=== PATIENT | male | born 1960 | race Caucasian/White ===

== ENCOUNTER 2020-09-08 21:46 | Emergency (ER) | payer OTHER, SELFPAY ==
--- NOTE | ~2020-09-08 | XR_ITS ---
EXAMINATION: XR CHEST CLINICAL INFORMATION: Altered mental status COMPARISON: None TECHNIQUE: Frontal view of the chest was obtained. FINDINGS: There is marked hypoinflation of the lungs with bibasilar atelectasis. Heart size normal. There is no evidence of CHF. No large effusions are present. XR/XR chest 1V IMPRESSION: Hypoinflated lungs with bibasilar atelectasis.
--- NOTE | ~2020-09-08 | CT_ITS ---
EXAMINATION: NONCONTRAST HEAD CT NONCONTRAST CERVICAL SPINE CT INDICATION INFORMATION: Fall. Intoxicated. COMPARISON: None TECHNIQUE: Separate noncontrast CT examinations of the head and cervical spine were performed. Coronal and sagittal images were created for each examination at the technologist workstation. This CT examination was performed using dose optimization techniques as appropriate, variously including the following: *Automated exposure control *Adjustment of mA and/or kV according to patient size (this includes techniques or standardized protocols for targeted exams where dose is matched to indication/reason for exam; i.e. extremities or head) *Use of iterative reconstruction technique DLP: 1807 mGy-cm FINDINGS: Head: There is no evidence of acute intracranial hemorrhage or territorial infarction. No abnormal mass effect or midline shift is seen. Lucas to white matter differentiation is well preserved. No extra-axial fluid collections are identified. No hydrocephalus. No significant volume loss. There is no abnormal attenuation within the brain parenchyma. No acute osseous or soft tissue abnormality. The mastoid air cells and visualized portions of the paranasal sinuses are well aerated. Cervical spine: Slight anterolisthesis of C3 on C4, appearing degenerative with facet arthropathy at this level. There is otherwise anatomic alignment of the vertebral bodies and posterior elements. The atlantoaxial and atlantooccipital articulations are intact. Vertebral body heights are maintained. There is multilevel intervertebral disc space narrowing with endplate osteophyte formation and facet arthropathy. No evidence of acute fracture. No prevertebral soft tissue swelling. Visualized portions of the lung apices are unremarkable. The thyroid gland is unremarkable. CT/CT cervical spine wo con IMPRESSION: 1. No acute intracranial finding. 2. No fracture or malalignment of the cervical spine. Mild to moderate degenerative changes.
--- NOTE | 2020-09-08 21:53 | ECG_ITS ---
Test Reason : ETOH Blood Pressure : / mmHG Vent. Rate : 061 BPM Atrial Rate : 061 BPM P-R Int : 216 ms QRS Dur : 114 ms QT Int : 472 ms P-R-T Axes : 033 -15 011 degrees QTc Int : 475 ms Sinus rhythm with 1st degree A-V block Minimal voltage criteria for LVH, may be normal variant Borderline ECG No previous ECGs available Referred By: Lan Lopez Electronically Signed By:VALENTÍN GONZALES
[2020-09-08 22:19] VITALS: BP 124/59; PULSE 62; RESP 18; TEMP 36.5; O2SAT 88; BMI 30.4
[2020-09-08 22:21] LABS: MANUAL DIFF FLAG NO
[2020-09-08 22:22] LABS: Basophils Absolute Auto 0.1 X10*3/uL (0.0-0.2); Basophils Percent Auto 0.7 % (0-2); Eosinophils Absolute Auto 0.1 X10*3/uL (0.0-0.4); Eosinophils Percent Auto 1.7 % (0-4); Hemoglobin 14.3 g/dl (14.0-18.0); Imm Gran Abs Auto 0.04 X10*3/uL (0.00-0.03); Imm Gran Pct Auto 0.5 % (0.0-0.4); Lymphocytes Absolute Auto 1.6 X10*3/uL (1.2-4.9); Lymphocytes Percent Auto 21.5 % (20-40); Mean Corpuscular Volume 88.1 fL (80-98); Mean Platelet Volume 9.7 fL (9.4-12.4); Monocytes Absolute Auto 0.5 X10*3/uL (0.1-1.2); Monocytes Percent Auto 5.9 % (2-11); Neutrophils Absolute Auto 5.3 X10*3/uL (2.0-8.3); Neutrophils Percent Auto 69.7 % (45-73); Platelet Count 160 X10*3/uL (160-400); Red Blood Count 4.77 X10*6/uL (4.60-5.80); Red Cell Distribution Width 12.3 % (11.0-16.0); White Blood Count 7.6 X10*3/uL (4.8-10.8)
[2020-09-08 22:28] VITALS: O2SAT 94
[2020-09-08 22:28] LABS: Glucose, Whole Blood 233 mg/dL (60-115)
--- NOTE | 2020-09-08 22:32 | PC.NURSE ---
Addendum entered by Lu Anand 09/08/20 22:38: note writen on wrong patient. disregard Original Note: rn to rn with Helga.
[2020-09-08 22:33] VITALS: BP 105/63
[2020-09-08] MEDS: 0.9 % Sodium Chloride 1,000 ML 999 ML IVCONT (22:33)
[2020-09-08] MEDS: ondansetron HCL 4 MG/2 ML VIAL IVPUSH (22:33)
[2020-09-08 22:35] LABS: INTERNATIONAL NORM RATIO 0.9 (0.9-1.1); Prothrombin Time 10.9 SEC (10.8-13.0)
[2020-09-08 22:41] LABS: Ethanol 280 mg/dL
[2020-09-08 22:42] LABS: Lipase 33 U/L (8-78); Magnesium 2.1 mg/dL (1.6-2.6)
[2020-09-08 22:44] LABS: Alanine Aminotransferase 33 U/L (0-40); Albumin Level 4.5 g/dL (3.5-5.0); Alkaline Phosphatase 72 U/L (39-117); Anion Gap 17 (12-20); Aspartate Amino Transferase 22 U/L (5-37); Bilirubin Direct < 0.2 mg/dL (0.0-0.5); Bilirubin Total 0.4 mg/dL (0.0-1.0); Blood Urea Nitrogen 21 mg/dL (9-16); Calcium 8.9 mg/dL (8.4-10.2); Carbon Dioxide 22 mmol/L (22-29); Chloride 103 mmol/L (96-108); Creatinine Clr Calc Pharmacy 119.1; Estimated Glomerular Filt Rate > 60; Glucose Random 267 mg/dL (60-115); Potassium 3.2 mmol/L (3.3-5.1); Sodium 139 mmol/L (135-145)
[2020-09-08 22:47] LABS: Troponin-I High Sensitivity < 3.5 ng/L (<3.5-35.0)
[2020-09-08 23:13] LABS: Partial Thromboplastin Time 19.7 SEC (24.1-38.0)
--- NOTE | 2020-09-08 23:14 | PC.NURSE ---
detox information, al-anon, and AA info given to . leaving at this time with all of belongings to tend to child at home.
--- NOTE | 2020-09-09 00:11 | ED.ALCOHOL ---
HPI - Alcohol General Chief Complaint: ETOH/Substance Use Stated Complaint: etoh Time Seen by Provider: 09/08/20 21:52 Source: EMS Mode of arrival: EMS Limitations: altered mental status History of Present Illness HPI narrative: Patient alcoholic drinks heavy often was intoxicated at home fell out witnessed EMS found him on the floor large tumors volume of vomitus around him patient able to open his eyes to name but otherwise unable to follow commands pupils were 4 mm reactive no injuries to the skull gag reflex intact was present at home when EMS reached MD complaint: alcohol intoxication Related Data Home Medications Medication Instructions Recorded Confirmed allopurinol 300 mg PO DAILY 09/08/20 09/08/20 amlodipine 10 mg PO DAILY 09/08/20 09/08/20 atenolol 50 mg PO DAILY 09/08/20 09/08/20 atorvastatin 20 mg PO BEDTIME 09/08/20 09/08/20 hydrochlorothiazide 25 mg PO QAM 09/08/20 09/08/20 lisinopril 40 mg PO DAILY 09/08/20 09/08/20 metformin 1,000 mg PO DAILY 09/08/20 09/08/20 omeprazole 20 mg PO DAILY 09/08/20 09/08/20 Allergies Allergy/AdvReac Type Severity Reaction Status Date / Time No Known Allergies Allergy Verified 09/08/20 22:19 Review of Systems Review of Systems: Yes Unobtainable due to mental condition (Intoxicated) [facility] Past Medical History Medical History Diabetes ETOH abuse High cholesterol HTN (hypertension) Social History Social History Alcohol intake: current Alcohol intake frequency: 3 or more drinks per day Physical Exam Vital Signs: Vital Signs: Last Vital Signs Temp 97.7 F 09/08/20 22:19 Pulse 62 09/08/20 22:19 Resp 18 09/08/20 22:19 BP 105/63 09/08/20 22:33 Pulse Ox 94 09/08/20 22:28 Body Mass Index 30.4 Const: General: no acute distress, intoxicated appearing and patient obtunded Orientation/consciousness: oriented to person and patient obtunded HENMT: Head: Yes No palpable skull fracture present, Yes normocephalic and Yes atraumatic Mouth: Normal oral and palatal mucosa present Eyes: General: appearance normal, both eyes and all related structures Pupils: Equal, round and reactive pupils present Neck: Neck: Yes normal visual inspection, Yes full ROM and No trachea midline Chest: Chest palpation & inspection: normal inspection of the chest and normal palpation of entire chest wall Resp: Effort & Inspection: normal respiratory effort Auscultation: clear to auscultation bilaterally, no crackles and no rales Cardio: Palpation: normal PMI Rate: regular rate Rhythm: regular rhythm Heart sounds: S1 normal heart sound present and S2 normal heart sound present Peripheral pulses: Peripheral pulses 2+ throughout GI: Inspection: Yes normal to inspection Palpation (GI): Soft to palpation and nontender Auscultation: normal bowel sounds : General: Yes no CVA tenderness Back/Spine/Pelvis: Back: no CVA tenderness Thoracic/Lumbar Spine: thoracic and lumbar spine normal to inspection Skin: General skin exam: no rashes or lesions noted Neuro: Other: Minimal response to painful stimuli General: oriented to person and patient obtunded Cranial nerves: Yes Equal, round and reactive pupils present Course Reevaluation(s) Reevaluation #1: Patient oriented x3 now alert able to ambulate does not remember what happened to him denies any significant pain . Will discharge patient home Time: 00:19 MDM - Alcohol MDM Narrative Medical decision making narrative: Patient a couple intoxication workup is negative for any several bleeders cervical FX patient improved during stay in the ED will discharge patient home Lab Data Attestation: I reviewed the patient's lab results. Result diagrams: 09/08/20 22:16 09/08/20 22:16 Labs: Lab Results 09/08/20 09/08/20 09/08/20 Range/Units 22:16 22:16 22:16 WBC 7.6 (4.8-10.8) X10*3/uL RBC 4.77 (4.60-5.80) X10*6/uL Hgb 14.3 (14.0-18.0) g/dl Hct 42.0 (42-52) % MCV 88.1 (80-98) fL MCH 30.0 (27.0-33.0) pg MCHC 34.0 (31.0-36.0) g/dl RDW 12.3 (11.0-16.0) % Plt Count 160 (160-400) X10*3/uL MPV 9.7 (9.4-12.4) fL Immature Gran % (Auto) 0.5 H (0.0-0.4) % Neut % (Auto) 69.7 (45-73) % Lymph % (Auto) 21.5 (20-40) % [place] % (Auto) 5.9 (2-11) % Eos % (Auto) 1.7 (0-4) % Baso % (Auto) 0.7 (0-2) % Lymph # (Auto) 1.6 (1.2-4.9) X10*3/uL [place] # (Auto) 0.5 (0.1-1.2) X10*3/uL Eos # (Auto) 0.1 (0.0-0.4) X10*3/uL Baso # (Auto) 0.1 (0.0-0.2) X10*3/uL Abs Immat Gran (auto) 0.04 H (0.00-0.03) X10*3/uL Absolute Neuts (auto) 5.3 (2.0-8.3) X10*3/uL Absolute Nucleated RBC 0.000 (0.0-0.012) X10*3/uL Nucleated RBC % (auto) 0.0 (0.0-0.2) /100WBC PT 10.9 (10.8-13.0) SEC INR 0.9 (0.9-1.1) APTT 19.7 L (24.1-38.0) SEC Sodium 139 (135-145) mmol/L Potassium 3.2 L (3.3-5.1) mmol/L Chloride 103 (96-108) mmol/L Carbon Dioxide 22 (22-29) mmol/L Anion Gap 17 (12-20) BUN 21 H (9-16) mg/dL Creatinine 0.92 (0.5-1.4) mg/dL Estim Creat Clear Calc 119.1 Estimated GFR > 60 POC Glucose (60-115) mg/dL Random Glucose 267 H (60-115) mg/dL Calcium 8.9 (8.4-10.2) mg/dL Magnesium (1.6-2.6) mg/dL Total Bilirubin 0.4 (0.0-1.0) mg/dL Direct Bilirubin < 0.2 (0.0-0.5) mg/dL AST 22 (5-37) U/L ALT 33 (0-40) U/L Alkaline Phosphatase 72 (39-117) U/L Troponin I High Sens (<3.5-35.0) ng/L Total Protein 7.0 (6.5-8.0) g/dL Albumin 4.5 (3.5-5.0) g/dL Lipase (8-78) U/L Ethyl Alcohol mg/dL 09/08/20 09/08/20 09/08/20 Range/Units 22:16 22:16 22:16 WBC (4.8-10.8) X10*3/uL RBC (4.60-5.80) X10*6/uL Hgb (14.0-18.0) g/dl Hct (42-52) % MCV (80-98) fL MCH (27.0-33.0) pg MCHC (31.0-36.0) g/dl RDW (11.0-16.0) % Plt Count (160-400) X10*3/uL MPV (9.4-12.4) fL Immature Gran % (Auto) (0.0-0.4) % Neut % (Auto) (45-73) % Lymph % (Auto) (20-40) % [place] % (Auto) (2-11) % Eos % (Auto) (0-4) % Baso % (Auto) (0-2) % Lymph # (Auto) (1.2-4.9) X10*3/uL [place] # (Auto) (0.1-1.2) X10*3/uL Eos # (Auto) (0.0-0.4) X10*3/uL Baso # (Auto) (0.0-0.2) X10*3/uL Abs Immat Gran (auto) (0.00-0.03) X10*3/uL Absolute Neuts (auto) (2.0-8.3) X10*3/uL Absolute Nucleated RBC (0.0-0.012) X10*3/uL Nucleated RBC % (auto) (0.0-0.2) /100WBC PT (10.8-13.0) SEC INR (0.9-1.1) APTT (24.1-38.0) SEC Sodium (135-145) mmol/L Potassium (3.3-5.1) mmol/L Chloride (96-108) mmol/L Carbon Dioxide (22-29) mmol/L Anion Gap (12-20) BUN (9-16) mg/dL Creatinine (0.5-1.4) mg/dL Estim Creat Clear Calc Estimated GFR POC Glucose (60-115) mg/dL Random Glucose (60-115) mg/dL Calcium (8.4-10.2) mg/dL Magnesium 2.1 (1.6-2.6) mg/dL Total Bilirubin (0.0-1.0) mg/dL Direct Bilirubin (0.0-0.5) mg/dL AST (5-37) U/L ALT (0-40) U/L Alkaline Phosphatase (39-117) U/L Troponin I High Sens < 3.5 (<3.5-35.0) ng/L Total Protein (6.5-8.0) g/dL Albumin (3.5-5.0) g/dL Lipase 33 (8-78) U/L Ethyl Alcohol mg/dL 09/08/20 09/08/20 Range/Units 22:16 22:25 WBC (4.8-10.8) X10*3/uL RBC (4.60-5.80) X10*6/uL Hgb (14.0-18.0) g/dl Hct (42-52) % MCV (80-98) fL MCH (27.0-33.0) pg MCHC (31.0-36.0) g/dl RDW (11.0-16.0) % Plt Count (160-400) X10*3/uL MPV (9.4-12.4) fL Immature Gran % (Auto) (0.0-0.4) % Neut % (Auto) (45-73) % Lymph % (Auto) (20-40) % [place] % (Auto) (2-11) % Eos % (Auto) (0-4) % Baso % (Auto) (0-2) % Lymph # (Auto) (1.2-4.9) X10*3/uL [place] # (Auto) (0.1-1.2) X10*3/uL Eos # (Auto) (0.0-0.4) X10*3/uL Baso # (Auto) (0.0-0.2) X10*3/uL Abs Immat Gran (auto) (0.00-0.03) X10*3/uL Absolute Neuts (auto) (2.0-8.3) X10*3/uL Absolute Nucleated RBC (0.0-0.012) X10*3/uL Nucleated RBC % (auto) (0.0-0.2) /100WBC PT (10.8-13.0) SEC INR (0.9-1.1) APTT (24.1-38.0) SEC Sodium (135-145) mmol/L Potassium (3.3-5.1) mmol/L Chloride (96-108) mmol/L Carbon Dioxide (22-29) mmol/L Anion Gap (12-20) BUN (9-16) mg/dL Creatinine (0.5-1.4) mg/dL Estim Creat Clear Calc Estimated GFR POC Glucose 233 H (60-115) mg/dL Random Glucose (60-115) mg/dL Calcium (8.4-10.2) mg/dL Magnesium (1.6-2.6) mg/dL Total Bilirubin (0.0-1.0) mg/dL Direct Bilirubin (0.0-0.5) mg/dL AST (5-37) U/L ALT (0-40) U/L Alkaline Phosphatase (39-117) U/L Troponin I High Sens (<3.5-35.0) ng/L Total Protein (6.5-8.0) g/dL Albumin (3.5-5.0) g/dL Lipase (8-78) U/L Ethyl Alcohol 280 mg/dL ECG Data Attestation: I personally reviewed and interpreted this ECG as follows: Interpretation: Normal sinus rate heart rate 61 beats per minute LVH normal intervals normal axis no acute ST-T changes no acute ischemia Discharge Plan Discharge Clinical Impression: Alcoholic intoxication Qualifiers: Complication of substance-induced condition: uncomplicated Qualified Code(s): F10.920 - Alcohol use, unspecified with intoxication, uncomplicated Patient Disposition: Home, Self-Care Instructions: Alcohol Intoxication (ED) Additional Instructions: Stop alcohol use Prescriptions: No Action atorvastatin 20 mg Tablet 20 mg PO BEDTIME RF: 0 amlodipine 10 mg Tablet 10 mg PO DAILY RF: 0 metformin 1,000 mg Tablet 1,000 mg PO DAILY RF: 0 omeprazole 20 mg Capsule,Delayed Release(Dr/Ec) 20 mg PO DAILY RF: 0 allopurinol 300 mg Tablet 300 mg PO DAILY RF: 0 hydrochlorothiazide 25 mg Tablet 25 mg PO QAM RF: 0 lisinopril 40 mg Tablet 40 mg PO DAILY RF: 0 atenolol 50 mg Tablet 50 mg PO DAILY RF: 0
--- NOTE | 2020-09-09 03:00 | PC.NURSE ---
Report taken from meredith Basilio RN resuming care. Pt sleeping in bed at this time in NAD. Continue to monitor.
[2020-09-09 04:30] VITALS: RESP 16
--- NOTE | 2020-09-09 06:06 | PC.NURSE ---
This RN contacting , en route to pick pt up.
[2020-09-09 06:17] VITALS: BP 151/75; PULSE 80; RESP 20
== END 2020-09-09 06:19 | disposition home or self-care (01) ==
LOC: HO.ED 09-09 01:49
PROVIDERS: Emergency Provider Internal Medicine
DX: F10.120 Alcohol abuse with intoxication, uncomplicated (principal); Y90.8 Blood alcohol level of 240 mg/100 ml or more; E11.9 Type 2 diabetes mellitus without complications; E78.5 Hyperlipidemia, unspecified; I10 Essential (primary) hypertension; Z79.02 Long term (current) use of antithrombotics/antiplatelets; Z79.84 Long term (current) use of oral hypoglycemic drugs; Z79.899 Other long term (current) drug therapy
CPT/HCPCS: 36415; 70450; 71045; 72125; 80048; 80076; 80320; 82947; 83690; 83735; 84484; 85025; 85610; 85730; 93005; 96361; 96374; 99284; 99285; J2405

== ENCOUNTER 2020-10-28 06:17 | Outpatient (REF) | payer OTHER, SELFPAY ==
[2020-10-28 08:10] LABS: Estimated Average Glucose 157 mg/dL; Hemoglobin A1c % 7.1 %
[2020-10-28 08:25] LABS: Anion Gap 15 (12-20); Aspartate Amino Transferase 22 U/L (5-37); Blood Urea Nitrogen 20 mg/dL (9-16); Carbon Dioxide 26 mmol/L (22-29); Chloride 101 mmol/L (96-108); Cholesterol 165 mg/dL; Estimated Glomerular Filt Rate > 60; Glucose Fasting 170 mg/dL (60-99); HDL Cholesterol 43 mg/dL; LDL Cholesterol Calculated 79 mg/dl; Potassium 4.7 mmol/L (3.3-5.1); Sodium 137 mmol/L (135-145); Triglycerides 215 mg/dL
[2020-10-28 08:45] LABS: Creatinine Urine 139.55 mg/dL; Microalbum/Creatinine Ratio Ur 13.6 ug/mg cr
== END 2020-10-28 06:18 | disposition home or self-care (01) ==
LOC: HO.LAB 06:17
PROVIDERS: PCP Family Medicine; Visit Provider Family Medicine
DX: I10 Essential (primary) hypertension (principal); E11.9 Type 2 diabetes mellitus without complications; E78.00 Pure hypercholesterolemia, unspecified; Z79.899 Other long term (current) drug therapy
CPT/HCPCS: 36415; 80051; 80061; 82043; 82550; 82565; 82947; 83036; 84450; 84520

== ENCOUNTER 2020-12-22 07:09 | Day surgery (SDC) | payer OTHER, SELFPAY ==
[2020-12-12 14:39] VITALS: BMI 35.9
[2020-12-22 07:29] VITALS: BP 150/77; PULSE 59; RESP 18; TEMP 36.5; O2SAT 97
[2020-12-22 07:51] LABS: Glucose, Whole Blood 153 mg/dL (60-115)
--- NOTE | 2020-12-22 07:52 | P.CONAN_ITS ---
[facility] Past Medical History Medical History (Updated 12/12/20 @ 14:45 by Sylvia Quezada) COVID-19 vaccine series completed Diabetes ETOH abuse GERD (gastroesophageal reflux disease) High cholesterol HTN (hypertension) Hx of gout Functional capacity: independent ambulation Family History Family history of problems with anesthesia: No Surgical History Surgical History (Updated 12/12/20 @ 14:44 by Sylvia Quezada) H/O colonoscopy History of esophagogastroduodenoscopy (EGD) Hx of inguinal hernia repair History of Problems with Anesthesia: No Social History Social History Are you a primary hospice care transitions coordinator to a significant other at home: No Do you presently have visiting nurse or other home services: No Alcohol intake: current Alcohol intake frequency: a few times a week Patient Tobacco Use Status: Never used Tobacco Use of substances other than those prescribed or required for medical reasons: No Have you been hit, kicked, punched, or otherwise hurt by someone within the past year? If so, by whom?: No Are you DNR?: No Advance Directives: No (states is HCP but no official form on file) Advance Directives Information Provided: No Advance Directives on File: No Recently lost weight without trying: No Eating poorly because of decreased appetite: No Nutrition Risks: No Nutritional Risk Poor oral hygiene: Yes Meds Allergies Allergy/AdvReac Type Severity Reaction Status Date / Time No Known Allergies Allergy Verified 09/08/20 22:19 Active Medications: Current Medications Generic Name Dose Route Start Last Admin Trade Name Freq PRN Reason Stop Dose Admin Sodium Biphosphate/Sodium Phosphate 133 ml 12/22/20 07:11 Sodium Phosphate,[place]-Dibasic 133 Ml Enema OK ONCE PRN Poor Colonoscopy Prep Results Home Medications Medication Instructions Recorded Confirmed Last Taken Type allopurinol 300 mg tablet 300 mg PO DAILY 09/08/20 12/12/20 Unknown History amlodipine 10 mg tablet 10 mg PO DAILY 09/08/20 12/12/20 Unknown History atenolol 50 mg tablet 50 mg PO DAILY 09/08/20 12/12/20 Unknown History atorvastatin 20 mg tablet 20 mg PO BEDTIME 09/08/20 12/12/20 Unknown History hydrochlorothiazide 25 mg tablet 25 mg PO QAM 09/08/20 12/12/20 Unknown History lisinopril 40 mg tablet 40 mg PO DAILY 09/08/20 12/12/20 Unknown History metformin 1,000 mg tablet 1,000 mg PO DAILY 09/08/20 12/12/20 Unknown History omeprazole 20 mg capsule,delayed 20 mg PO DAILY 09/08/20 12/12/20 Unknown History release Exam Exam Date and Time: December 22, 2020 0752 Height,Weight and Vital Signs: Height 6 ft 5 in Weight 137.438 kg Last Vital Signs Temp 97.7 F 12/22/20 07:29 Pulse 59 12/22/20 07:29 Resp 18 12/22/20 07:29 BP 150/77 H 12/22/20 07:29 Pulse Ox 97 12/22/20 07:29 Pertinent Lab Results Pertinent Lab Results: Laboratory Tests 12/22/20 07:26 POC Glucose 153 H Airway Mallampati Class: III TM Dist: >3cm Neck ROM: Full Heart: RRR Lungs: CTA Assessment and Plan Final Anesthetic Review Family History of Problems with Anesthesia: No History of Problems with Anesthesia: No
[2020-12-22] MEDS: Lactated Ringers 1,000 ML 50 ML IVCONT (07:56)
[2020-12-22 09:31] VITALS: BP 108/63; PULSE 61; RESP 16; TEMP 36.3; O2SAT 95
--- NOTE | 2020-12-22 09:35 | P.BOP_ITS ---
Brief Operative Note Date of Service: 12/22/20 Pre-op diagnosis: Thao's, Screening Post-op diagnosis: other (Hiatal hernia, Colon polyp) Procedure: EGD with biopsy, Colonoscopy to the cecum and TI with bx/removal of polyp Surgeon: Palmer Shay Anesthesia: MAC Was an [employer] Worker used for this Procedure?: No Estimated blood loss (mL): 3.0 Pathology: other (A. EG Junction at 40cm B. Transverse colon polyp) Condition: stable Disposition: PACU
[2020-12-22 09:36] VITALS: BP 109/63; PULSE 59; RESP 16; O2SAT 95
[2020-12-22 09:41] VITALS: BP 106/61; PULSE 59; RESP 16; TEMP 36.4; O2SAT 95
--- NOTE | 2020-12-22 10:32 | OP_ITS ---
SURGEON: Palmer Shay MD INDICATIONS: The patient presents for evaluation of gastroesophageal reflux, Thao's esophagus, and colorectal cancer screening. Full consent has been obtained from him for this, including risks of bleeding and perforation. PREOPERATIVE DIAGNOSIS: POSTOPERATIVE DIAGNOSIS: PROCEDURE PERFORMED: Esophagogastroduodenoscopy with biopsies, and colonoscopy to the cecum and terminal ileum with biopsy and removal of polyp. ESTIMATED BLOOD LOSS: COMPLICATIONS: ANESTHESIA: Monitored anesthesia care. ASSISTANTS: SPECIMENS: PREOPERATIVE DIAGNOSES: Thao's esophagus and colorectal cancer screening. POSTOPERATIVE DIAGNOSES: Thao's esophagus and colorectal cancer screening, small hiatal hernia, colon polyp, diverticulosis, and internal hemorrhoids. DESCRIPTION OF PROCEDURE: The patient was placed in the left lateral decubitus position. The Olympus video gastroscope was passed in the posterior oropharynx and upper esophagus under direct vision. The scope was passed slowly to the distal esophagus. The gastroesophageal junction appeared at 40 cm. There was a very minimal irregularity consistent with reflux and possibly small areas of Thao's mucosa. There was no evidence of any esophagitis nor any lesions. There was a small hiatal hernia. The scope was advanced to the pylorus and duodenum was cannulated to the descending portion. The duodenum including the bulb appeared normal without mass or ulceration. The scope was withdrawn back into the stomach. The gastric antrum and body appeared normal with good peristalsis. Scope was retroflexed visualizing the proximal stomach carefully which appeared normal, without any sign of mass or ulceration, other than several hyperplastic appearing gastric polyps. The scope was straightened. The scope was withdrawn back into the esophagus. Biopsies were obtained from the EG junction at 40 cm. Proximal to this, the esophageal mucosa appeared normal. The scope was withdrawn from the patient. He was turned around for the colonoscopy. The digital rectal exam revealed no abnormalities. The Olympus video pediatric colonoscope was entered into the rectum and advanced easily to the cecum. Once in the cecum, I did identify normal-appearing cecal pouch with appendiceal orifice and a normal-appearing ileocecal valve. The terminal ileum was cannulated and appeared normal. Scope was withdrawn back in the colon. The entire cecum and ileocecal valve appeared normal. The scope was slowly withdrawn assessing all mucosal surfaces carefully. Preparation was excellent. In the transverse colon, was a flat approximately 4 or 5 mm polyp, which was biopsied and completely removed with cold biopsy forceps. I did not visualize any other polyps, colitis, nor angiodysplasia. There was a moderate amount of sigmoid diverticulosis. In the rectum, scope was retroflexed visualizing small internal hemorrhoids, but no other pathology. The rectal mucosa appeared normal. The scope was straightened out and withdrawn from the patient. He tolerated both procedures well and was returned to recovery area in stable condition. IMPRESSION: 1. Small hiatal hernia, gastroesophageal reflux, history of Thao's esophagus. 2. Small colon polyp, status post biopsy and removal. 3. Diverticulosis. 4. Internal hemorrhoids. PLAN: The results of biopsies will be checked. I would recommend a repeat upper endoscopy in approximately 3 years. If the colon polyp is a tubular adenoma, I would recommend a followup colonoscopy in 5 years. If it is only hyperplastic, I would recommend a followup colonoscopy in 10 years. In fact, if he is going to have a colonoscopy in 5 years, I would recommend the upper endoscopy be done in 5 years rather than 3 given the very minimal nature of the Thao's esophagus. He was advised to continue his omeprazole. MD ASHLEY Foley/JOSH / [id number]
== END 2020-12-22 11:00 | disposition home or self-care (01) ==
PROVIDERS: PCP Family Medicine; Visit Provider Internal Medicine
PROC: (CPT 45380; principal; 2020-12-22 08:20)
DX: Z12.11 Encounter for screening for malignant neoplasm of colon (principal); D12.3 Benign neoplasm of transverse colon; K57.30 Diverticulosis of large intestine without perforation or abscess without bleeding; K64.8 Other hemorrhoids; K22.70 Barrett's esophagus without dysplasia; K21.9 Gastro-esophageal reflux disease without esophagitis; K44.9 Diaphragmatic hernia without obstruction or gangrene; I10 Essential (primary) hypertension; E11.9 Type 2 diabetes mellitus without complications; Z79.84 Long term (current) use of oral hypoglycemic drugs; Z79.899 Other long term (current) drug therapy
CPT/HCPCS: 45380; 43239; 82947; 88305; J3010

== ENCOUNTER 2021-07-31 06:44 | Outpatient (REF) | payer OTHER, SELFPAY ==
[2021-07-31 07:42] LABS: Estimated Average Glucose 160 mg/dL; Hemoglobin A1c % 7.2 %
[2021-07-31 07:54] LABS: Alanine Aminotransferase 33 U/L (0-40); Anion Gap 13 (12-20); Blood Urea Nitrogen 15 mg/dL (9-16); Carbon Dioxide 28 mmol/L (22-29); Chloride 98 mmol/L (96-108); Estimated Glomerular Filt Rate > 60; Glucose Fasting 188 mg/dL (60-99); Potassium 4.3 mmol/L (3.3-5.1); Sodium 135 mmol/L (135-145)
== END 2021-07-31 06:45 | disposition home or self-care (01) ==
LOC: HO.LAB 06:44
PROVIDERS: PCP Family Medicine; Visit Provider Family Medicine
DX: I10 Essential (primary) hypertension (principal); E11.9 Type 2 diabetes mellitus without complications; E78.00 Pure hypercholesterolemia, unspecified; Z79.899 Other long term (current) drug therapy
CPT/HCPCS: 36415; 80051; 82550; 82565; 82947; 83036; 84460; 84520

== ENCOUNTER 2022-10-19 06:45 | Outpatient (REF) | payer OTHER, SELFPAY ==
[2022-10-19 07:35] LABS: Estimated Average Glucose 180 mg/dL; Hemoglobin A1c % 7.9 %
[2022-10-19 08:19] LABS: Alanine Aminotransferase 29 U/L (0-40); Anion Gap 15 (12-20); Aspartate Amino Transferase 23 U/L (5-37); Blood Urea Nitrogen 19 mg/dL (9-16); Carbon Dioxide 28 mmol/L (22-29); Chloride 100 mmol/L (96-108); Cholesterol 171 mg/dL; Estimated Glomerular Filt Rate > 60; Glucose Fasting 199 mg/dL (60-99); HDL Cholesterol 45 mg/dL; LDL Cholesterol Calculated 63 mg/dl; Potassium 3.9 mmol/L (3.3-5.1); Sodium 139 mmol/L (135-145); Triglycerides 319 mg/dL
[2022-10-19 09:41] LABS: Creatinine Urine 210.73 mg/dL; Microalbum/Creatinine Ratio Ur 68.3 ug/mg cr
== END 2022-10-19 06:46 | disposition home or self-care (01) ==
LOC: HO.LAB 06:45
PROVIDERS: PCP Internal Medicine; Visit Provider Internal Medicine
DX: I10 Essential (primary) hypertension (principal); E11.9 Type 2 diabetes mellitus without complications; E78.00 Pure hypercholesterolemia, unspecified; Z79.899 Other long term (current) drug therapy
CPT/HCPCS: 36415; 80051; 80061; 82043; 82550; 82565; 82947; 83036; 84450; 84460; 84520

== ENCOUNTER 2023-05-03 07:02 | Outpatient (REF) | payer OTHER, SELFPAY ==
[2023-05-03 07:45] LABS: Estimated Average Glucose 171 mg/dL; Hemoglobin A1c % 7.6 % (<6.0)
[2023-05-03 08:07] LABS: Anion Gap 15 (12-20); Blood Urea Nitrogen 21 mg/dL (9-16); Carbon Dioxide 27 mmol/L (22-29); Chloride 100 mmol/L (96-108); Estimated Glomerular Filt Rate > 60; Glucose Fasting 188 mg/dL (60-99); Potassium 4.1 mmol/L (3.3-5.1); Sodium 138 mmol/L (135-145)
== END 2023-05-03 07:03 | disposition home or self-care (01) ==
LOC: HO.LAB 07:02
PROVIDERS: PCP Family Medicine; Visit Provider Family Medicine
DX: I10 Essential (primary) hypertension (principal); E11.9 Type 2 diabetes mellitus without complications
CPT/HCPCS: 36415; 80051; 82565; 82947; 83036; 84520

== ENCOUNTER 2023-11-24 06:38 | Outpatient (REF) | payer OTHER, SELFPAY ==
[2023-11-24 07:29] LABS: Estimated Average Glucose 166 mg/dL; Hemoglobin A1c % 7.4 % (<6.0)
[2023-11-24 07:50] LABS: Creatinine Urine 117.42 mg/dL
[2023-11-24 07:55] LABS: Alanine Aminotransferase 23 U/L (0-40); Albumin Level 4.3 g/dL (3.5-5.0); Alkaline Phosphatase 60 U/L (39-117); Anion Gap 14 (12-20); Aspartate Amino Transferase 15 U/L (5-37); Bilirubin Total 0.5 mg/dL (0.0-1.0); Blood Urea Nitrogen 17 mg/dL (9-16); Calcium 9.5 mg/dL (8.4-10.2); Carbon Dioxide 26 mmol/L (22-29); Chloride 103 mmol/L (96-108); Estimated Glomerular Filt Rate > 60; Glucose Fasting 165 mg/dL (60-99); Potassium 4.2 mmol/L (3.3-5.1); Sodium 139 mmol/L (135-145); Total Protein 6.5 g/dL (6.5-8.0)
== END 2023-11-24 06:39 | disposition home or self-care (01) ==
LOC: HO.LAB 06:38
PROVIDERS: PCP Family Medicine; Visit Provider Family Medicine
DX: E11.9 Type 2 diabetes mellitus without complications (principal); I10 Essential (primary) hypertension
CPT/HCPCS: 36415; 80053; 82043; 82550; 82570; 83036

== ENCOUNTER 2024-07-20 06:51 | Outpatient (REF) | payer OTHER, SELFPAY ==
[2024-07-20 07:39] LABS: Estimated Average Glucose 200 mg/dL; Hemoglobin A1c % 8.6 % (<6.0)
[2024-07-20 07:52] LABS: Anion Gap 12 (12-20)
[2024-07-20 08:01] LABS: Aspartate Amino Transferase 29 U/L (5-37); Blood Urea Nitrogen 22 mg/dL (9-16); Carbon Dioxide 28 mmol/L (22-29); Chloride 102 mmol/L (96-108); Cholesterol 165 mg/dL (<200); Estimated Glomerular Filt Rate > 60; Glucose Fasting 196 mg/dL (60-99); HDL Cholesterol 37 mg/dL (>40); LDL Cholesterol Calculated 88 mg/dL (<100); Potassium 4.4 mmol/L (3.3-5.1); Sodium 138 mmol/L (135-145); Triglycerides 201 mg/dL (<150)
[2024-07-20 08:13] LABS: Alanine Aminotransferase 34 U/L (0-40); Uric Acid 4.9 mg/dL (3.4-7.0)
[2024-07-20 08:24] LABS: Creatinine Urine 101.32 mg/dL; Microalbum/Creatinine Ratio Ur 15.7 ug/mg cr (<30)
== END 2024-07-20 06:52 | disposition home or self-care (01) ==
LOC: HO.LAB 06:51
PROVIDERS: PCP Family Medicine; Visit Provider Family Medicine
DX: I10 Essential (primary) hypertension (principal); M10.9 Gout, unspecified; E78.00 Pure hypercholesterolemia, unspecified; E11.9 Type 2 diabetes mellitus without complications; Z79.899 Other long term (current) drug therapy
CPT/HCPCS: 36415; 80051; 80061; 82043; 82550; 82565; 82570; 82947; 83036; 84450; 84460; 84520; 84550

== ENCOUNTER 2025-02-19 15:45 | Outpatient (REF) | payer OTHER, SELFPAY ==
[2025-02-19 16:35] LABS: MANUAL DIFF FLAG NO
[2025-02-19 17:11] LABS: Hematocrit 44.9 % (42.0-52.0); Hemoglobin 15.1 g/dl (14.0-18.0); Imm Gran Abs Auto 0.02 X10*3/uL (0.00-0.03); Imm Gran Pct Auto 0.4 % (0.0-0.4); Lymphocytes Absolute Auto 0.8 X10*3/uL (1.2-4.9); Mean Corpuscular HGB Conc 33.6 g/dl (31.0-36.0); Mean Corpuscular Hemoglobin 28.9 pg (27.0-33.0); Mean Corpuscular Volume 85.9 fL (80.0-98.0); NRBC Abs Auto 0.000 X10*3/uL (0.0-0.012); NRBC Pct Auto 0.0 /100WBC (0.0-0.2); Platelet Count 127 X10*3/uL (160-400); Red Blood Count 5.23 X10*6/uL (4.60-5.80); White Blood Count 5.1 X10*3/uL (4.8-10.8)
[2025-02-19 17:42] LABS: Alanine Aminotransferase 31 U/L (0-40); Albumin Level 4.7 g/dL (3.5-5.0); Alkaline Phosphatase 63 U/L (39-117); Anion Gap 12 (12-20); Aspartate Amino Transferase 25 U/L (5-37); Blood Urea Nitrogen 22 mg/dL (9-16); Calcium 9.2 mg/dL (8.4-10.2); Carbon Dioxide 29 mmol/L (22-29); Chloride 103 mmol/L (96-108); Cholesterol 188 mg/dL (<200); Estimated Glomerular Filt Rate > 60; HDL Cholesterol 39 mg/dL (>40); Potassium 4.3 mmol/L (3.3-5.1); Sodium 140 mmol/L (135-145); Total Protein 6.9 g/dL (6.5-8.0); Triglycerides 302 mg/dL (<150)
[2025-02-20 03:12] LABS: Syphilis Screen Nonreactive (Nonreactive)
[2025-02-20 04:15] LABS: HBS Num1 0.13 mIU/mL (0-7.99); HBc Num1 0.07 S/CO (0.00-0.79); HBsAGNum1 0.34 S/CO (0.00-0.99); HIV Num 1 0.06 S/CO (0.00-0.99); Hepatitis A Antibody IgM 0.18 Index (0-0.79); Hepatitis B Surface Antigen Negative (Negative); ~HepC Num1 0.09 S/CO (0.00-0.79); ~Hepatitis A Antibody IgM Nonreactive (Nonreactive); ~Hepatitis B Surface Antibody NONREACTIVE (Nonreactive); ~Hepatitis C Antibody Nonreactive (Nonreactive)
== END 2025-02-19 15:46 | disposition home or self-care (01) ==
LOC: HO.LAB 15:45
PROVIDERS: PCP Student in an Organized Health Care Education/Training Program; Visit Provider Student in an Organized Health Care Education/Training Program
DX: E11.9 Type 2 diabetes mellitus without complications (principal); Z76.89 Persons encountering health services in other specified circumstances; E78.5 Hyperlipidemia, unspecified; K21.9 Gastro-esophageal reflux disease without esophagitis; I1A.0 Resistant hypertension; E78.49 Other hyperlipidemia; M1A.9XX0 Chronic gout, unspecified, without tophus (tophi)
CPT/HCPCS: 36415; 80053; 80061; 82306; 83036; 84443; 85025; 86704; 86706; 86709; 86780; 86803; 87340; 87389; 96127

== ENCOUNTER 2025-02-19 15:45 | Outpatient (AMB) | payer OTHER, SELFPAY ==
--- NOTE | 2025-02-19 15:03 | A.OFFPC_ITS ---
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: No Accompanied by: Self / Same As Patient Allergies No Known Allergies Allergy (Verified 02/19/25 15:04) Medication List - Last Reconciled 02/19/25 by Kali Jefferson MD allopurinol 300 mg PO DAILY amlodipine 10 mg PO DAILY atenolol 50 mg PO DAILY atorvastatin 20 mg PO BEDTIME empagliflozin (Jardiance) 10 mg PO DAILY hydrochlorothiazide 25 mg PO QAM lisinopril 40 mg PO DAILY magnesium oxide 500 mg PO DAILY metformin 1,000 mg PO DAILY multivitamin 1 tab PO DAILY omeprazole 20 mg PO DAILY Tobacco use date assessed: 02/19/25 Dental Screening Dental Screen Date: 02/19/25 Did you have a dental visit in the last 12 months?: Yes Did you have a dental problem in the last 6 months where you did not have access to dental care?: No Was dental information given to patient?: Patient has dentist HPI HPI Comments History of Present Illness Details The patient is a 64-year-old male presenting with a need for management of his chronic medical conditions and follow-up care. His medical history includes essential hypertension, type 2 diabetes mellitus, hyperlipidemia, gout, hiatal hernia, and chronic acid reflux. His hypertension has been managed with multiple medications, and his blood pressure readings were previously around 145-150/90 mmHg. The patient's type 2 diabetes has been suboptimally controlled, with his last HbA1c reading at 8.6. He has been taking Jardiance and metformin, though it is not certain if Jardiance was part of his regimen when the most recent A1c was measured. He has not experienced any full-fledged gout flares and previously attributed his condition to alcohol consumption, which ceased two years ago following a DUI. He has a history of cataracts, for which he had corrective lens implantation, and experiences occasional lower back pain and knee stiffness, which he partially attributes to his mattress. The patient has a hiatal hernia diagnosed by Dr. Shay, leading to chronic acid reflux, which is managed with omeprazole. His surgical history includes repair of a right-side hernia. The patient denies any current alcohol use, smoking, or illicit drug use. 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 There is a family history of diabetes and strokes, his mother having experienced diabetes and his father's side having incidence of stroke. His dietary intake, exercise regimen, and family planning practices were not explicitly discussed. Medical History: - Essential Hypertension - Type 2 Diabetes Mellitus - Hyperlipidemia - Gout - Hiatal Hernia - Chronic Acid Reflux - History of Cataracts - Impaired Glucose Control (A1c of 8.6) Surgical History: - Right inguinal hernia repair Medications: - Amlodipine 10 mg for hypertension - Atenolol 50 mg for hypertension - Hydrochlorothiazide 25 mg for hyperten akil - Lisinopril 40 mg for hypertension - Allopurinol 300 mg for gout - Atorvastatin 20 mg for hyperlipidemia - Jardiance 10 mg for type 2 diabetes - Metformin 1000 mg for type 2 diabetes - Omeprazole for acid reflux Family History: - Mother: Diabetes Mellitus - Father's side: Strokes - Uncle: Colon cancer Social History: - Employs at a center for individuals wi th traumatic brain injuries - 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 - Completed master's degree in psycholog y - Denies current alcohol consumption - Denies smoking history - Denies use of illicit drugs PFSH Medical History Gout Hyperlipidemia COVID-19 vaccine series completed GERD (gastroesophageal reflux disease) Hx of gout Diabetes High cholesterol HTN (hypertension) ETOH abuse Surgical History (Updated 02/14/25 @ 15:25 by Telma Eduardo) Hx of inguinal hernia repair History of esophagogastroduodenoscopy (EGD) H/O colonoscopy (~12/22/20) Social History Housing: House Are you a primary animal caretaker supervisor to a significant other at home: No Do you presently have visiting nurse or other home services: No Alcohol intake: current Alcohol intake frequency: a few times a week Patient Tobacco Use Status: Never used Tobacco e-Cigarette/Vaping Use: Never Used service: No Current occupational status: employed 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 1. Little interest or pleasure in doing things: not at all 2. Feeling down, depressed, or hopeless: not at all 3. Trouble falling or staying asleep, or sleeping too much: not at all 4. Feeling tired or having little energy: not at all 5. Poor appetite or overeating: not at all 6. Feeling bad about yourself - or that you are a failure or have let yourself or your family down: not at all 7. Trouble concentrating on things, such as reading the newspaper or watching television: not at all 8. Moving or speaking so slowly that other people could have noticed. Or the opposite - being so fidgety or restless that you have been moving around a lot more than usual: not at all 9. Thoughts that you would be better off or of hurting yourself in some way: not at all Total score: 0 Depression Screening Interpretation: Negative Depression Screening Done: Yes 97738 - PHQ-9 Billing: Yes Source: Developed by Drs. Palmer Herrera, Sherry Gresham, Alexandre Ohara and colleagues, with an educational aleah from [employer]. Thrive Questionnaire Date Thrive assessed: 02/19/25 I am a: Patient What is your living situation today?: I have a steady place to live Within the past 12 months, did the food you bought not last and you didn't have the money to get more?: Never true Within the past 12 months, did you worry whether your food would run out before you got money to buy more?: Never true Do you have trouble paying for medicines?: No Do you have trouble getting transportation to medical appointments?: No Do you have trouble paying your heating and electricity bill?: No Do you have trouble taking care of your child, family member or friend?: No Do you have trouble with day-to-day activities such as bathing, preparing meals, shopping, managing finances, etc.?: No Are you currently unemployed and looking for a job?: No Are you interested in more education?: No THRIVE Score: 0 AUDIT C Alcohol Use Questionnaire (AUDIT-C) 1. How often do you have a drink containing alcohol?: Never 3. How often do you have six or more drinks on one occasion?: Never Total Score: 0 Score Reviewed/Action Taken: Yes GABRIEL-7 AMB Questionnaire GABRIEL-7 Date GABRIEL - 7 assessed: 02/19/25 Feeling nervous, anxious, or on edge: 0 = Not at all Not being able to stop or control worryin = Not at all Worrying too much about different things: 0 = Not at all Trouble relaxin = Not at all Being so restless that it is hard to sit still: 0 = Not at all Becoming easily annoyed or irritable: 0 = Not at all Feeling afraid as if something awful might happen: 0 = Not at all Total GABRIEL-7 score (0-4 normal; 5-9 mild; 10-14 moderate; 15-21 severe): 0 Source: Developed by Drs. Palmer Herrera, Sherry Gresham, Alexandre Ohara and colleagues, with an educational aleah from [employer]. GABRIEL-7 Assessment Billing GABRIEL-7 Assessment Tool: GABRIEL-7 Assessment 76303 Review of Systems Const Details: - Constitutional: Reports occasional lower back soreness - Musculoskeletal: Reports knee stiffness while driving - Gastrointestinal: Denies diarrhea or constipation - Genitourinary: Reports urination as normal - Eye: Denies vision changes since cataract surgery - Psychological: Denies depression or anxiety All systems reviewed & are unremarkable except as reviewed in HPI and above Physical exam (Primary Care) Vital Signs: Last Vital Signs Temp 98.1 F 02/19/25 15:55 Pulse 69 02/19/25 15:55 Resp 18 02/19/25 15:55 BP 138/76 02/19/25 15:55 Pulse Ox 95 02/19/25 15:55 Oxygen Delivery Method Room Air 02/19/25 15:55 BMI result Body Mass Index 38.3 Tobacco/Smoking Status: Tobacco use Status Tobacco use date assessed 02/19/25 02/19/25 15:04 Patient Tobacco Use Status Never used Tobacco 02/19/25 15:04 e-Cigarette/Vaping Use Never Used 02/19/25 15:58 PHQ-9: PHQ-9 Score PHQ-9: Total score 0 02/19/25 16:04 Depression Screening Interpretation: Negative Thrive Assessment: Date of Thrive Assessment Date Thrive assessed 02/19/25 02/19/25 16:04 Const Other: General: +Alert and oriented, Well nourished, No acute distress. Eye: Pupils are equal, round and reactive to light, Intact accommodation, Extraocular movements are intact, Normal conjunctiva, Vision unchanged. HENT: Normocephalic, Atraumatic, Tympanic membranes are clear, Normal hearing, Oral mucosa is moist, No pharyngeal erythema, Ear canals patent. Respiratory: Lungs CTA bilaterally, No wheeze, Respirations are non-labored. Cardiovascular: Regular rate, Regular rhythm, S1 auscultated, S2 auscultated, No murmur, Good pulses equal in all extremities, Normal peripheral perfusion, No edema. Gastrointestinal: Soft, Non-tender, Non-distended, Normal bowel sounds, No organomegaly. Musculoskeletal: Normal range of motion, Normal strength, No tenderness, No swelling, No deformity, Normal gait. Integumentary: Warm, Dry, [place], Intact. Neurologic: Alert, Oriented, Normal sensory, Normal motor function, No focal defects, Cranial Nerves II-XII are grossly intact, Normal deep tendon reflexes. Psychiatric: Cooperative, Appropriate mood & affect, Normal judgment. Coding Level of Care Code New Pt Level 4 (13625) Diagnoses Resistant hypertension I1A.0 Hypertension type: resistant hypertension Type 2 diabetes mellitus without complication, without long-term current use of insulin E11.9 Diabetes mellitus type: type 2 Diabetes mellitus longterm insulin use: without longterm use Diabetes mellitus complication status: without complication Gastroesophageal reflux disease without esophagitis K21.9 Esophagitis presence: without esophagitis Other hyperlipidemia E78.49 Hyperlipidemia type: other hyperlipidemia Chronic gout without tophus, unspecified cause, unspecified site [id number].[id number] Gout site: unspecified site Gout etiology: unspecified cause Chronicity: chronic Presence of tophus: without tophus Additional Codes GABRIEL-7 Assessment Billing - GABRIEL-7 Assessment Tool: GABRIEL-7 Assessment 27429 ([id number]) PHQ-9 - 73068 - PHQ-9 Billing: Yes ([id number]) Assessment & Plan Assessment & Plan (1) HTN (hypertension): Comment: - Continue current antihypertensive regimen with amlodipine, atenolol, hydrochlorothiazide, and lisinopril. - Continue monitoring blood pressure, which is currently well-controlled. Code(s): I10 - Essential (primary) hypertension Category: Medical Qualifiers: Hypertension type: resistant hypertension Qualified Code(s): I1A.0 - Resistant hypertension (2) Diabetes: Comment: - A1c of 8.6 suggests poor glycemic control. - Continue Jardiance and metformin. - Conduct laboratory testing to check current glucose levels. - Schedule HbA1c retest before the next visit in three months. - Possible adjustment of medication pending lab results. 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 Code(s): K21.9 - Gastro-esophageal reflux disease without esophagitis Category: Medical Qualifiers: Esophagitis presence: without esophagitis Qualified Code(s): K21.9 - Gastro-esophageal reflux disease without esophagitis (4) Hyperlipidemia: Comment: - Continue atorvastatin. - Assess lipid profile through laboratory testing. - Evaluate for potential medication adjustment based on lab results. Code(s): E78.5 - Hyperlipidemia, unspecified Category: Medical Qualifiers: Hyperlipidemia type: other hyperlipidemia Qualified Code(s): E78.49 - Other hyperlipidemia (5) Gout: Comment: - Exercise consideration of withholding allopurinol. - Monitor for gout symptoms during discontinuation. Code(s): M10.9 - Gout, unspecified Category: Medical Qualifiers: Gout site: unspecified site Gout etiology: unspecified cause Chronicity: chronic Presence of tophus: without tophus Qualified Code(s): M1A.9XX0 - Chronic gout, unspecified, without tophus (tophi) Plan: Healthcare Maintenance: - Scheduled ophthalmology exam post-cataract surgery. - Recommended podiatry visit for toe management and nail care. Patient was informed and verbally consented to the use of an ambient scribe for clinic note documentation during this visit. Plan During today's consultation, we reviewed the management of the patient's chronic medical conditions including hypertension, diabetes, hyperlipidemia, and acid reflux. The patient's blood pressure is well-controlled under the current medication regimen. Given the elevated HbA1c, diabetes medication adjustments will be considered following blood work results. We discussed the potential cessation of allopurinol to assess the stability of gout symptoms and emphasized the importance of ophthalmology follow-up post-cataract surgery. Consideration was given to the patient's musculoskeletal discomfort possibly related to mattress quality, and the patient was advised to evaluate the issue further. The patient was informed about the necessity of regular follow-ups and preventive care measures including lab work and consultations. Orders: Orders Complete Blood Count Auto Diff Today Z76.89 - Persons encountering health services in other specified circumstances Hemoglobin A1c Today Z76.89 - Persons encountering health services in other specified circumstances Hepatitis A,B,C Profile Today Z76.89 - Persons encountering health services in other specified circumstances HIV Ab/Ag Today Z76.89 - Persons encountering health services in other specified circumstances Lipid Panel Today Z76.89 - Persons encountering health services in other specified circumstances Syphilis Screen Today Z76.89 - Persons encountering health services in other specified circumstances TSH reflex Free T4 Today Z76.89 - Persons encountering health services in other specified circumstances Hemoglobin A1c 3 Months E11.9 - Type 2 diabetes mellitus without complications Comprehensive Met. Panel Today Z76.89 - Persons encountering health services in other specified circumstances Vitamin D 25-OH Total Today Z76.89 - Persons encountering health services in other specified circumstances Referrals Podiatry Referral E11.9 - Type 2 diabetes mellitus without complications Patient Instructions: - Continue taking all current medications as prescribed. - Come back in three months; get labs done a day or two before. - Hold off on gout medication, allopurinol, for a few days. - Follow up with surgical instrument repair specialist scheduled for March 23. - Visit hospital lab for blood work today. - Contact office via portal for results and further instructions.
[2025-02-19 15:55] VITALS: BP 138/76; PULSE 69; RESP 18; TEMP 36.7; O2SAT 95; BMI 38.3
--- OUTSIDE RECORDS SUMMARY | 2025-02-19 18:22 | XMS_ITS | Patient Health Record ---
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 Name Role Phone Davion (RETIRED) Thuan OLIVER Primary Care Provider Unavailable Palmer Shay Unavailable [phone] Reason For Referral No Information Medications Medication SIG (Take, Route, Frequency, Duration) Notes Start Date End Date Status Atenolol 50mg Active amLODIPine Besylate 10mg Active Multi Vitamin/Minerals Active Allopurinol 300mg Ac tive Magnesium 500 MG Orally Act leonardo Vitamin C 500 MG Orally Act leonardo Atorvastatin Calcium 20 MG 1 tablet Oral ly Once a day Active metFORMIN HCl 1000 MG 1 tablet with meal s Orally Twice a day Active Omeprazole 20 MG TAKE 1 CAPSULE BY MOUTH EVERY DAY; Duration: 90 Active Lisinopril 40mg Acti ve Simvastatin 80mg Not -Taking hydroCHLOROthiazide 25mg Active Immunizations Vaccine Route Administration Date Status Comme nts Influenza Unknown 10/08/2020 Refused Social History Alcohol Screen Question Answer Notes Did you have a drink contain ing alcohol in the past year? Yes How often did you have a dri nk containing alcohol in the past year? 2 to 3 times a week (3 points) How many drinks did you have on a typical day when you were drinking in the past year? 3 or 4 drinks (1 point) How often did you have 6 or more drinks on one occasion in the past year? Never (0 point) Points 4 Interpretation Positive Section Notes: He does not smoke and uses o nly occasional beer He does not smoke and uses o nly occasional beer He does not smoke and uses o nly occasional beer He does not smoke and uses o nly occasional beer He does not smoke and uses o nly occasional beer Problems Problem Type SNOMED Code ICD Code Onset Dates Problem Status W/U Status Risk Notes Problem Esophageal reflux (530618461) Esophageal reflux (K21.9) Active confirmed Problem Screening for malignant neoplasm of colon (313041629) Encounter for screening for malignant neoplasm of colon (Z12.11) Active confirmed Problem Thao's esophagus (177392675) 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) Active confirmed Problem Gastroesophageal reflux disease without esophagitis (223443980) Gastroesophageal reflux disease without esophagitis (K21.9) Active confirmed Problem Thao esophagus (283812991) Thao esophagus (K22.70) Active confirmed Problem Diverticular disease of colon (209784456) Diverticular disease of colon (K57.30) Active confirmed Plan Of Treatment Future Test Test Name Order Date UPPER GI ENDOSCOPY 08/02/2014 UPPER GI ENDOSCOPY 10/08/2020 COLONOSCOPY 10/08/2020 Insurance Providers Payer Name Payer Address Payer Phone Subscriber Number Group Number Insured Name Patient Relationship to Insured Coverage Start Date Coverage End Date [address] [place] [phone] [id number] SAL TOLBERT Self - patient is the insured Medical (General) History Medical History History ICD Code Hypertension Gout Hyperlipidemia Gastroesophageal reflux--EGD in 04/2011 with small area of Thao's esophagus and mild reflux esophagitis, small HH--biopsies were negative for dysplasia Denies VA,CVA,Lung disease,renal disease Screening colonoscopy in 2010--no polyps--sigmoid diverticulosis and small internal hemorrhoids NIDDM 09/2014-Upper endoscopy revea led the known small area of Thao's esophagus with biopsies all negative for dysplasia Surgical History Surgery Date(Month/Year) Hernia
== END 2025-02-19 16:13 | disposition home or self-care (01) ==
PROVIDERS: PCP Student in an Organized Health Care Education/Training Program; Visit Provider Student in an Organized Health Care Education/Training Program
DX: I1A.0 Resistant hypertension (principal); E11.9 Type 2 diabetes mellitus without complications; K21.9 Gastro-esophageal reflux disease without esophagitis; E78.49 Other hyperlipidemia; M1A.9XX0 Chronic gout, unspecified, without tophus (tophi)

== ENCOUNTER 2025-04-24 13:11 | Outpatient (AMB) | payer OTHER, SELFPAY ==
[2025-04-24 13:45] VITALS: BMI 37.5
--- NOTE | 2025-04-24 13:45 | A.OFFVIS_ITS ---
Vital Signs 04/24/25 13:45 Height 6 ft 3 in Weight 300 lb BMI 37.5 Intake Visit Reasons: Diabetic Foot Card Intake Note: Jhon is a 64 year old male who presents today as a new patient for a diabetic foot exam. Patient last known glucose two days ago was 140 and his last known A1c was 10% as of february. He denies experiencing numbness, tingling, or burning in his feet. no previous medical history of wounds or amputation's to his feet. Patient mentions he has hammer toes on both foot and his nails needs to be trimmed. Allergies No Known Allergies Allergy (Verified 04/24/25 13:46) HPI Comments Details: The patient is a 64 year old male with a past medical history as seen below presenting for a diabetic foot exam. He reports it has been approximately a year and a half since his toenails were last trimmed and states he has difficulty tendon to his feet due to his past medical history and difficulty bending down. The patient has bilateral hammertoes, which cause rubbing and discomfort in shoes, leading to calluses. To manage this, he wears extra-wide, soft-top shoes and has tried toe separators. He has a history of interdigital maceration and cracking, for which he tried various topical treatments without success, though the issue has since resolved and is not currently present. He states his most recent blood glucose level was 140 mg/dL his most recent A1c was approximately 10. He denies any recent pedal injuries. He denies any other pedal concerns. [facility] Medical History Nail dystrophy Nail disorder Tinea unguium Varicose veins with swelling Diabetic neuropathy Vitamin D deficiency Gout Hyperlipidemia COVID-19 vaccine series completed GERD (gastroesophageal reflux disease) Hx of gout Diabetes High cholesterol HTN (hypertension) ETOH abuse Surgical History (Updated 02/14/25 @ 15:25 by Telma Eduardo) Hx of inguinal hernia repair History of esophagogastroduodenoscopy (EGD) H/O colonoscopy (~12/22/20) Social History Housing: House Are you a primary healthcare customer service to a significant other at home: No Do you presently have visiting nurse or other home services: No Alcohol intake: current Alcohol intake frequency: a few times a week Patient Tobacco Use Status: Never used Tobacco e-Cigarette/Vaping Use: Never Used service: No Current occupational status: employed 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 Reports history of interdigital cracking and moisture, which has resolved. - Musculoskeletal: Reports discomfort to toes when nails are elongated and thickened. - Neurological: Denies numbness or burning sensations in the feet. All systems reviewed & are unremarkable except as noted in HPI and below Physical Exam Vital Signs: BMI result Body Mass Index 37.5 Extrem Other: Bilateral lower extremity focused physical exam: Derm: Toenails x10 noted to be elongated, dystrophic, and thickened x10 with subungual debris. No open lesions abrasions or wounds noted. No erythema, ecchymosis, or discoloration noted. Skin supple and turgor within normal limits. No hyperkeratotic or macerated areas noted. No clinical signs of infection noted. Vascular: DP/PT pulses palpable. Capillary refill time less than 3 seconds. Temperature gradient warm to warm. Nonpitting edema noted bilaterally. Pedal hair diminished. Varicosities noted bilaterally. Neuro: Protective sensation is grossly intact to light touch and slightly diminished to monofilament testing. MSK: Discomfort noted to the forefoot due to thickened and elongated toenails x10. Severe hammertoe deformities noted to digits 2 through 5 bilaterally. MMT 5/5. Range of motion of the forefoot, hindfoot, and ankles within normal limits. No crepitus or fluctuance noted. Nonantalgic slow gait noted. Office Procedures AMB Debridement /Avulsion Details: Debrided toenails x10 with sterile nail nippers and Dremel without incidents. [id number]-Astnmqinzzm of Nail 6+ Procedure code (CPT) selection complete Diabetic Foot Exam G9226 - Diabetic Foot Exam (09303 - debridement of toenails x10) Results Reviewed Results Reviewed: Laboratory Tests 02/19/25 16:34 WBC 5.1 Random Glucose 187 H Estimat Average Glucose 240 Hemoglobin A1c % 10.0 H AST 25 ALT 31 Assessment & Plan Assessment & Plan (1) Diabetes: Code(s): E11.9 - Type 2 diabetes mellitus without complications Category: Medical Qualifiers: Diabetes mellitus type: type 2 Diabetes mellitus fdc insulin use: without rat exterminator use Diabetes mellitus complication status: without complication Qualified Code(s): E11.9 - Type 2 diabetes mellitus without complications (2) Diabetic neuropathy: Code(s): E11.40 - Type 2 diabetes mellitus with diabetic neuropathy, unspecified Category: Medical (3) Varicose veins with swelling: Code(s): I83.899 - Varicose veins of unspecified lower extremity with other complications Category: Medical (4) Tinea unguium: Code(s): B35.1 - Tinea unguium Category: Medical (5) Nail disorder: Code(s): L60.9 - Nail disorder, unspecified Category: Medical (6) Nail dystrophy: Code(s): L60.3 - Nail dystrophy Category: Medical Plan Patient was informed and verbally consented to the use of an ambient scribe for clinic note documentation during this visit. I discussed my findings with the patient, explaining that his hammertoes were contributing to pressure changes, can cause callus formation, and altered nail shape. I recommended routine nail care every 9 weeks. I recommended he try silicone toe sleeves to prevent rubbing from his footwear. I also advised him that should the moisture between his toes return, he could use iodine to help keep the interdigital spaces dry. The patient agreed to the plan and will schedule a follow-up appointment in nine weeks. - Debrided toenails x10. - Recommended silicone toe sleeves to prevent rubbing and pressure from hammertoes; a printout of a suggested product was provided. - Advised the patient to use iodine swabs in the webspaces of the toes if interdigital maceration recurs. - Advised patient to wear supportive shoe gear and to avoid barefoot walking. - Continue diabetic management as per PCP. RTC in 9 weeks. Coding Level of Care Code New Pt Level 4 (18190) Diagnoses Type 2 diabetes mellitus without complication, without long-term current use of insulin E11.9 Diabetes mellitus type: type 2 Diabetes mellitus rat exterminator insulin use: without rat exterminator use Diabetes mellitus complication status: without complication Diabetic neuropathy E11.40 Varicose veins with swelling I83.899 Tinea unguium B35.1 Nail disorder L60.9 Nail dystrophy L60.3 CPT Codes Diabetic Foot Exam - CPT: G9226 - Diabetic Foot Exam ([id number]) Time Spent (min) 54 Comment 9 mins for the procedure
== END 2025-04-24 14:09 | disposition home or self-care (01) ==
LOC: HO.HPODS 13:11
PROVIDERS: PCP Student in an Organized Health Care Education/Training Program; Visit Provider Student in an Organized Health Care Education/Training Program
DX: E11.40 Type 2 diabetes mellitus with diabetic neuropathy, unspecified (principal); I83.899 Varicose veins of unspecified lower extremity with other complications; B35.1 Tinea unguium; L60.9 Nail disorder, unspecified; L60.3 Nail dystrophy
CPT/HCPCS: 99204; G9226